=== PATIENT | female | born 1955 | race Caucasian/White ===

== ENCOUNTER 2020-02-07 07:00 | Emergency (ER) | payer BC ==
[~2020-02-07] VITALS: Ht 170.2 cm; Wt 98.0 kg
[2020-02-07 07:16] VITALS: Ht 170.2 cm; Wt 98.0 kg
[2020-02-07 08:39] LABS: CALCIUM 8.6 mg/dL (8.5-10.1); CARBON DIOXIDE 28.9 mmol/L (21-32); POTASSIUM SERUM 3.8 mmol/L (3.5-5.1)
[2020-02-07 08:42] LABS: BASOPHIL % 0.2 % (0-2); PLATELET COUNT 213 x10^3mcL (130-400); RED CELL DISTRIBUTION WIDTH 13.7 % (11.5-14.5)
[2020-02-07 08:44] LABS: ALBUMIN 3.4 g/dL (3.4-5.0); BILIRUBIN TOTAL 0.53 mg/dL (0.20-1.00); TOTAL PROTEIN, SERUM 7.4 g/dL (6.4-8.2)
[2020-02-07 09:09] VITALS: BP 136/72
== END 2020-02-07 09:09 | disposition home or self-care (01) ==
LOC: ED 07:00
PROVIDERS: Emergency Medicine
DX: N20.0 Calculus of kidney (principal); E11.9 Type 2 diabetes mellitus without complications; E03.9 Hypothyroidism, unspecified